=== PATIENT | male | born 1990 | race Two or more races ===

== ENCOUNTER 2017-07-31 17:08 | Emergency (ER) | payer BC ==
--- NOTE | 2017-07-31 17:43 | ER Document Report ---
HPI - HPI Patient complains to provider of: Itching and rash Onset: This morning Onset/Duration: Sudden, Better Pain Level: 1 Context: 26-year-old male complaining of itching and hives since this morning. He took a Claritin which is helped. His brother is a family practitioner doctor in [place] and he told him to go to the emergency room. He does not know what caused the hives. No oral or lip swelling no chest pain or shortness of breath. The Claritin has helped decrease the rash. Associated Symptoms: None Exacerbated by: Denies Relieved by: Other - Claritin helped Similar symptoms previously: No Recently seen / treated by doctor: No - ROS ROS below otherwise negative: Yes Systems Reviewed and Negative: Yes All other systems reviewed and negative Past Medical History - General Information source: Patient - Social History Smoking Status: Never Smoker Frequency of alcohol use: None Drug Abuse: None Lives with: Family Family History: Reviewed & Not Pertinent - Medical History Medical History: Negative Surgical Hx: Negative Vertical Provider Document - CONSTITUTIONAL Agree With Documented VS: Yes Exam Limitations: No Limitations - INFECTION CONTROL TRAVEL OUTSIDE OF THE [place] IN LAST 30 DAYS: No - HEENT HEENT: Normal ENT Exam. negative: Conjuctival Injection - NECK Neck: Supple - RESPIRATORY Respiratory: Breath Sounds Normal, No Respiratory Distress - CARDIOVASCULAR Cardiovascular: Regular Rate, Regular Rhythm - GI/ABDOMEN Gastrointestinal: Abdomen Soft - MUSCULOSKELETAL/EXTREMETIES Musculoskeletal/Extremeties: MAEW - NEURO Level of Consciousness: Awake - DERM Integumentary: Rash - red scratch joseph dorsal right foot, small wheals left midabdomen Course - Vital Signs Vital signs: Temp Pulse Resp BP Pulse Ox 98.4 F 97 16 145/79 H 96 07/31/17 17:26 07/31/17 17:26 07/31/17 17:26 07/31/17 17:26 07/31/17 17:26 Discharge - Discharge Clinical Impression: mild hives Condition: Good Disposition: HOME, SELF-CARE Instructions: Acute Urticaria ([facility]), Use of Diphenhydramine Additional Instructions: Take 25-50 mg of Benadryl every 4 hours Return to the emergency room if symptoms worsen See your [facility] medical group provider for follow-up
[2017-07-31 18:20] VITALS: BP 138/86
== END 2017-07-31 18:19 | disposition home or self-care (01) ==
LOC: ER 17:08
DX: L50.9 Urticaria, unspecified (principal); L29.9 Pruritus, unspecified
CPT/HCPCS: 99283